=== PATIENT | female | born 1950 | race Caucasian/White ===

== ENCOUNTER 2024-02-11 12:11 | Outpatient (CLI) | payer MEDICARE, OTHER, SELFPAY ==
--- NOTE | ~2024-02-11 | XR_ITS ---
XR knee RT min 4V Ordering provider: Lloyd Gale MD History: . RT KNEE GAVE OUT X 1 MONTH, PAIN. . Comparison: November 26, 2017 FINDINGS: BONES: No acute fracture or dislocation. JOINT SPACES: Partial hip arthroplasty seen in the medial compartment. SOFT TISSUES: Normal. IMPRESSION: No acute osseous abnormality right knee. Right knee hemiarthroplasty Reviewed, dictated and finalized at location A.
--- NOTE | ~2024-02-11 | XR_ITS ---
XR knee LT min 4V Ordering provider: Lloyd Gale MD History: . EVAL, COMPARE. RT KNEE GAVE OUT 1 MONTH AGO. PAIN, WEAKNESS . Comparison: None. FINDINGS: BONES: No acute fracture or dislocation. JOINT SPACES: Hemiarthroplasty is seen medially SOFT TISSUES: Normal. IMPRESSION: No acute osseous abnormality left knee. Reviewed, dictated and finalized at location A.
== END 2024-02-11 12:12 | disposition home or self-care (01) ==
PROVIDERS: Visit Provider Orthopaedic Surgery
DX: Z96.652 Presence of left artificial knee joint (principal); Z96.651 Presence of right artificial knee joint
CPT/HCPCS: 73564